=== PATIENT | male | born 1965 | race Caucasian/White ===

== ENCOUNTER 2023-06-12 14:31 | Emergency (ER) | payer SELFPAY ==
[~2023-06-12] VITALS: Ht 167.6 cm; Wt 74.8 kg
[2023-06-12 15:17] VITALS: BP_SYST 137; PULSE 72; RESP 18; TEMP 99; O2SAT 95
[2023-06-12 15:20] VITALS: BP_SYST 148; PULSE 75; RESP 18; TEMP 98.4; O2SAT 94
== END 2023-06-12 15:23 ==
LOC: SED 14:31
DX: Z02.89 Encounter for other administrative examinations (principal)
CPT/HCPCS: 99283